=== PATIENT | female | born 1985 | race Caucasian/White ===

== ENCOUNTER 2017-10-07 08:49 | Day surgery (SDC) | payer BC ==
[2017-10-06 14:39] LABS: BASOPHILS % (AUTO) 0.5 % (0-1); EOSINOPHILS # (AUTO) 0.1 X10'3 (0-0.9); EOSINOPHILS % (AUTO) 1.3 % (0-6); LYMPHOCYTES # (AUTO) 1.9 X10'3 (1.1-4.8); LYMPHOCYTES % (AUTO) 21.3 % (21-51); MEAN CORPUSCULAR HEMOGLOBIN 31.2 PG (27.0-31.0); MEAN CORPUSCULAR VOLUME 91.7 FL (78-98); MEAN PLATELET VOLUME 8.6 FL (7.4-10.4); MONOCYTES # (AUTO) 0.6 X10'3 (0-0.9); MONOCYTES % (AUTO) 6.4 % (2-12); NEUTROPHILS # (AUTO) 6.3 X10'3 (1.8-7.7); NEUTROPHILS % (AUTO) 70.5 % (42-75); PRE OP HEMATOCRIT 42.6 % (35.0-45.0); PRE OP HEMOGLOBIN 14.5 g/dL (12.0-16.0); PRE OP PLATELET COUNT 242 X10'3 (140-440); RED BLOOD COUNT 4.64 X10'6 (4.20-5.60); RED CELL DISTRIBUTION WIDTH 13.1 % (11.5-14.5)
[2017-10-06 15:06] LABS: HCG SERUM QL NEGATIVE
[~2017-10-07] VITALS: Ht 157.5 cm; Wt 74.7 kg
[2017-10-07] VITALS (10 sets, daily range): BP systolic 107–142; BP diastolic 62–88
[~2017-10-07 08:49] MED LIST: TRAM50TA2 PO; ceFAZolin inj. 2,000 MG in normal saline 100ml IV soln 100 ML IV ONE; famotidine 20mg tablet PO ONE; ringers solution, lacted 1,000 ML IV SCH
[2017-10-07] MEDS ORDERED: ringers solution, lacted 1,000 ML IV SCH (08:56)
[2017-10-07] MEDS ORDERED: morphine 4 MG/ML inj SYRINge IV PRN ×2 (09:00)
[2017-10-07] MEDS ORDERED: meperidine/PF 25mg/ml syringe IV PRN (09:00)
[2017-10-07] MEDS ORDERED: proCHLORperazine 10 MG/2 ml inj IV PRN ×2 (09:00)
[2017-10-07] MEDS ORDERED: fentaNYL/PF 50MCG/1 ML 2ML syringe ONE (10:19)
[2017-10-07] MEDS ORDERED: midazolam 2 mg/2 ml injection ONE (10:19)
[2017-10-07] MEDS ORDERED: dexamethasone sod phosphate 4mg/ml inj. ONE ×2 (10:29→10:31)
[2017-10-07] MEDS ORDERED: glycopyrrolate 0.2mg/ml inj ONE (10:31)
[2017-10-07] MEDS ORDERED: propofol inj 20 ML IV ONE (10:31)
[2017-10-07] MEDS ORDERED: LIDOcaine 2% (20mg/ml) 5ml vial ONE (10:31)
[2017-10-07] MEDS ORDERED: rocuronium 10mg/ml inj IV ONE (10:31)
[2017-10-07] MEDS ORDERED: neostigmine methylsulfate 1 MG/ML 10ml vial ONE (10:31)
[2017-10-07] MEDS ORDERED: BUPIVAcaine 0.5% inj/PF 30 ml vial IJ ONE (10:43)
[2017-10-07] MEDS: meperidine/PF 25mg/ml syringe IV PRN ×2 (11:33→11:54)
== END 2017-10-07 12:24 | disposition home or self-care (01) ==
LOC: PAS 08:49
PROVIDERS: ATTEND Obstetrics & Gynecology
DX: Z30.2 Encounter for sterilization (principal); N84.0 Polyp of corpus uteri; N71.1 Chronic inflammatory disease of uterus; N80.9 Endometriosis, unspecified; N73.6 Female pelvic peritoneal adhesions (postinfective); G89.29 Other chronic pain; M54.9 Dorsalgia, unspecified; Z98.890 Other specified postprocedural states; Z88.2 Allergy status to sulfonamides; Z90.49 Acquired absence of other specified parts of digestive tract
CPT/HCPCS: 36415; 58558; 58670; 84703; 85025; A4355; A6258; A6402; J0690; J0780; J1100; J2001; J2175; J2250; J2704; J2710; J3010; J3490; J7030; J7120; A7000